=== PATIENT | female | born 1960 | race Two or more races ===

== ENCOUNTER 2020-11-08 14:25 | Outpatient (CLI) | payer SELFPAY ==
[2020-11-08] MEDS ORDERED: BACI/NEOM/POLY B OINT PKT 1 UDPKT PACKET ONE (14:46)
== END 2020-11-08 23:59 | disposition home or self-care (01) ==
LOC: WOU 14:25
PROVIDERS: ATTEND Surgery
DX: S61.411D Laceration without foreign body of right hand, subsequent encounter (principal); V49.9XXD Car occupant (driver) (passenger) injured in unspecified traffic accident, subsequent encounter
CPT/HCPCS: G0463